=== PATIENT | male | born 1990 | race African-American/Black ===

== ENCOUNTER 2023-09-03 09:31 | Emergency (ER) | payer OTHER ==
[~2023-09-03] VITALS: Ht 185.4 cm; Wt 85.8 kg
[2023-09-03] MEDS: diazePAM 5MG TABLET PO ONE (10:54)
[2023-09-03] MEDS: LIDOCAINE 5% (LIDODERM) PATCH TD ONE (10:55)
[2023-09-03] MEDS: KETOROLAC 30 MG/ML 1ML VIAL IM ONE (10:55)
[2023-09-03] MEDS ORDERED: NAPR-837 PO (12:17)
[2023-09-03] MEDS ORDERED: METH-1164 PO (12:17)
[2023-09-03 12:38] VITALS: BP 128/70; TEMP 97.6; O2SAT 100
== END 2023-09-03 13:12 | disposition home or self-care (01) ==
LOC: M ED 09:31
DX: M54.50 Low back pain, unspecified (principal); Z79.1 Long term (current) use of non-steroidal anti-inflammatories (NSAID); Z79.891 Long term (current) use of opiate analgesic
CPT/HCPCS: 96372; 99283; J1100; J1885